=== PATIENT | female | born 1955 | race Caucasian/White ===

== ENCOUNTER → 2020-07-08 13:46 | Outpatient (CLI) | payer BC, SELFPAY ==
[2020-07-08 14:41] LABS: COVID19 -Nasal RAPID Negative (Negative)
== END ==
PROVIDERS: PCP Family Medicine; Visit Provider Nurse Practitioner
DX: Z20.822 Contact with and (suspected) exposure to COVID-19 (principal)
CPT/HCPCS: 87635

== ENCOUNTER 2020-07-11 09:43 | Day surgery (SDC) | payer BC, SELFPAY ==
[2020-07-04 12:40] VITALS: BMI 28.8
[2020-07-11] VITALS (24 sets, daily range): BP systolic 90–134; BP diastolic 37–82; PULSE 61–92; RESP 8–20; TEMP 35.9–36.8; O2SAT 75–99; BMI 28.8
--- NOTE | 2020-07-11 | DI.RAD.S_ITS ---
PROCEDURE: XR HIP W PEL IF DONE LT 2V INDICATIONS: ANTERIOR LEFT HIP TECHNIQUE: AP views of the left of the left hip(s). COMPARISON: [facility], CR, XR PELVIS WITH LATERAL HIP LEFT, 05/08/2020, 15:26. Merged With [facility], CR, XR HIP W PEL IF DONE LT 2V, 07/11/2020, 16:22. FINDINGS: Bones: C-arm images demonstrate placement of left hip arthroplasty with prosthetic components in expected positions. No periprosthetic fracture seen. Soft tissues: The visualized bowel gas pattern is normal. No suspicious soft tissue calcifications. IMPRESSION: Intraoperative C-arm images demonstrating expected positioning of left hip arthroplasty. Dictated by: Sae Jefferson [facility] Interpreted: Amarjit Mckeon MD on 07/11/2020 at 16:36 Approved by: Amarjit Mckeon M.D. on 07/11/2020 at 16:46
--- NOTE | 2020-07-11 09:21 | DI.RAD.S_ITS ---
PROCEDURE: XR HIP W PEL IF DONE LT 2V INDICATIONS: post op MATT, TOTAL LEFT HIP TECHNIQUE: 2 views of the hip were acquired. COMPARISON: [facility], , XR HIP W PEL IF DONE LT 2V, 07/11/2020, 13:50. FINDINGS: Bones: Expected appearance and alignment status post placement of left hip arthroplasty. No periprosthetic fractures. Degenerative disc and facet disease involves the inferior lumbar spine. Soft tissues: No suspicious soft tissue calcifications or masses. IMPRESSION: Expected immediate postoperative appearance and alignment of left hip arthroplasty. Dictated by: Sae Jefferson [facility] Interpreted: Amarjit Mckeon MD on 07/11/2020 at 16:51 Approved by: Amarjit Mckeon M.D. on 07/14/2020 at 17:04
[2020-07-11] MEDS: LACTATED RINGERS 1,000 ML 42 ML IV ×2 (10:04→14:37)
[2020-07-11] MEDS: ACETAMINOPHEN 325 MG TABLET 975 MG PO (10:05)
[2020-07-11] MEDS: PREGABALIN 75 MG CAPSULE PO (10:05)
[2020-07-11] MEDS: CELECOXIB 200 MG CAPSULE PO (10:05)
[2020-07-11] MEDS: VANCOMYCIN 1,000 MG/200 ML PIGGYBACK 200 MG IV (10:33)
--- NOTE | 2020-07-11 11:21 | P.OP_ITS ---
Operative Date/Time/Diagnoses Date of procedure: 07/11/20 Time of procedure: 11:59 Pre-op diagnosis: Left hip osteoarthritis and AVN Post-op diagnosis: same Procedure & Clinicians Procedure: left total hip arthroplasty anterior approach Same procedure as scheduled: Yes Indications: The patient has had progressively worsening left hip pain with radiographic changes consistent with arthritis. Non-operative management has failed and the patient has requested total hip replacement. The risks, benefits and alternatives to surgery were discussed with the patient prior to proceeding. Risks discussed included, but were not limited to, failure to relieve pain, leg length discrepancy, dislocation, stiffness, infection, nerve damage, deep venous thrombosis, pulmonary embolism, stroke, coma, heart attack, permanent paralysis and , as well as the potential need for eventual revision of the prosthetic. Surgeon: Nette Amaya Supervisor Power Reactor: Yohannes Thomas Anesthesia Type: General and Spinal Operative Notes Findings: severe left hip osteoarthritis, good stability Closure Type: primary Specimen(s): none sent Prosthetic devices, grafts, tissues, transplants, or devices: Amaya and Nephew 50 mm R3 cup, one 15 mm screw. Size 5 standard offset anthology, 32 by - 3 Oxinium head Estimated Blood Loss (mL): 250 Procedure in detail: The patient was brought to the operating room. Patient was carefully positioned in the supine position. Time-out was performed and antibiotics were given. Anesthesia was induced. She was positioned in the on the table in order to allow hyperextension of the hip. The left lower extremity was prepped and draped in a standard sterile fashion. An anterior left hip incision was made 1 fingerbreadth lateral to the anterior superior iliac spine and extended distally towards the greater trochanter. Dissection was carried out through skin and subcutaneous tissues. Superficial hemostasis was achieved. The fascia over the tensor fascia mariela was defined and incised with a knife. Two Allis clamps were used to grasp the fascia. Tensor fascia mariela was retracted laterally. A gelpi retractor was placed. Dissection was carried out down along the neck. The circumflex vessels were carefully identified and cauterized with the Aqua Mantis. There was good visualization of the femoral neck. A Cobra was placed superior to the neck and the gluteus fibers were carefully stripped from that superior aspect of the capsule. A 2nd retractor was placed along the inferior aspect of the neck. The rectus insertion along the capsule was partially released. A 3rd retractor that was then gently placed over the rim of the acetabulum under the rectus. Capsule was carefully incised and released from the intertrochanteric line circumferentially superior to the mid sagittal line and inferiorly to the mid sagittal line until the lesser trochanter was palpable. A tag stitch was placed both in the superior and inferior limb of the capsular insertion. Along the acetabulum capsule was also released up to the mid sagittal 12:00 position. A portion of the labrum was resected. A saw was used to perform an osteotomy at the level of the intertrochanteric line and the junction of the superior femoral neck leaving approximately 1 finger breath of residual inferior neck above the lesser trochanter. A 2nd cut was made along the femoral neck at the base of the head and a napkin ring of neck was removed. Corkscrew was placed in the femoral head and the head was removed without difficulty. Retractors were then repositioned around the acetabulum. Residual labrum was resected and additional osteophytes were removed. A reamer that was 4 mm below the templated size was placed by hand in the acetabulum and it was reamed to centralize the acetabulum. It was then reamed up to 2 under the templated size and fluoroscopy was brought in to confirm the position of the reaming and depth of reaming. I reamed 1 under the anticipated size. it was undersized and I reamed 2 mm more for 50 mm cup. A trial cup was placed and noted that it was appropriately sized and fluoroscopy confirmed position and depth. The component was open and inserted without difficulty fluoroscopic imaging was used to confirm that the cup had been adequately seated and was well positioned. It was further stabilized with a single screw. The cup was tested and noted to be stable. Attention was then directed to the femur. The femur was gently hyperextended additional capsular release was performed as needed in order to allow adequate visualization of the proximal femur with elevation of the femur. Patient was pl aced in a hyperextended slightly adducted position with maximum external rotation. Box osteotome was used to check for any residual neck as well as sclerotic bone along the trochanter. [place] pepper was placed in the femur. Additional broaching was performed. Canal finder was used to determine the alignment of the canal and position. Size 1 broach was placed. The canal was then appropriately broached up to the templated size as long as there was adequate stability of the broach and serial advancement of the broach without excessive impingement. Specific attention was directed at avoiding varus attempting to direct the distal aspect of the broach more anteriorly and avoiding excessive anteversion. Trial reduction showed acceptable range of motion, good stability, no posterior impingement, restorationism of leg length and appropriate lateral shuck. I also hyperflexed the hip and checked that there was no impingement anteriorly and there was good stability with flexion, adduction and internal rotation. Initial broaching was with an anthology a. It appeared that we could probably do a standard anthology and I broached with a standard anthology and also went up to a size 5 stem. Marcaine and Exparel were injected.. The stem was placed without difficulty. Repeat trial reduction and x-ray showed acceptable overall position, length, and no evidence of the femoral fracture. Final head was placed. Wound was meticulously irrigated with normal saline. The hip was reduced and additional Exparel and Marcaine were injected. The capsule was closed with interrupted nonabsorbable sutures. The fascia of the tensor was closed with interrupted and running Vicryl. No drain was placed. Any tensor fascia mariela muscle that appeared to be contused or injured which was a minimal amount was carefully resected. Capsule around the tensor was injected with Exparel and Marcaine. The skin was closed with barbed stitches for the subcutaneous tissue and skin. We also used surgical glue. The wound was dressed sterilely. Brief Betadine soak was also used and was meticulously irrigated with normal saline. Patient was transferred to recovery room in satisfactory condition. Complications: none Post-operative Condition: stable Disposition: Acute Care Plan for aftercare: The patient will be maintained on a standard total hip replacement protocol with weight bearing as tolerated and anterior hip precautions. The patient will receive Aspirin and sequential compression devices for DVT prophylaxis. The patient will be discharged home when safe for the home environment.
--- NOTE | 2020-07-11 11:21 | PM.PREOP ---
Pre-operative Note COVID-19 COVID-19 status: Negative Interval Note History & Physical reviewed/Exam performed by Physician: Yes Changes to H&P: No
[2020-07-11] MEDS: CEFAZOLIN 2 GM/100 ML FROZ.PIGGY IV ×2 (11:58→20:41)
--- NOTE | 2020-07-11 12:54 | SUR.OPER ---
Supine on padded Peerless table with bilateral legs secured in padded positioning boots and suspended in positioning spars, operative leg in traction per surgeon. Head on one pillow. Arm on non-operative side secured on padded armboard <90 degrees abduction. Arm on operative side padded and resting across chest then secured with tape over sheet. Padded perineal post in place per surgeon.
[2020-07-11] MEDS: BUPIVACAINE 0.25% W/ EPI (PF) 10 ML VIAL 20 ML INJ (13:04)
[2020-07-11] MEDS: TRANEXAMIC ACID 1,000 MG VIAL 2000 MG INJ ×2 (13:04→15:15)
[2020-07-11] MEDS: BUPIVACAINE LIPOSOME 266 MG/20 ML VIAL INJ (13:05)
[2020-07-11] MEDS: OXYCODONE IR 5 MG TABLET PO (16:59)
[2020-07-11] MEDS: LOVASTATIN 20 MG TABLET 40 MG PO (18:09)
[2020-07-11] MEDS: LACTATED RINGERS 1,000 ML 125 ML IV (18:09)
[2020-07-11] MEDS: IBUPROFEN 400 MG TABLET PO (18:09)
[2020-07-11] MEDS: ASPIRIN EC 81 MG TABLET PO (20:41)
[2020-07-11] MEDS: ACETAMINOPHEN 325 MG TABLET 650 MG PO (20:41)
[2020-07-11] MEDS: ONDANSETRON 4 MG/2 ML INJ IV (21:57)
--- NOTE | 2020-07-11 23:25 | PC.NURSE ---
not oob. pt unable to urinate. bladder scan at 2200 was 211cc. notified operation shift supervisor RN. pt had some nausea, emesis 300cc, administered zofran.
[2020-07-12 00:25] VITALS: BP 138/57; PULSE 85; RESP 18; TEMP 36.6; O2SAT 95
[2020-07-12] MEDS: IBUPROFEN 400 MG TABLET PO ×3 (01:00→08:53)
--- NOTE | 2020-07-12 01:52 | PC.NURSE ---
Patient seen at 2328 for shift assessment. Is alert and oriented. Breath sounds diminished at bases and is on oxygen at 1L/min per NC with sat of 92%. HRR. Mcewen slightly nauseated but received Zofran around 2200 so too early to repeat; no emesis. BT hypoactive and denies passing flatus as yet. Had not voided since return from surgery so assisted up to BSC at 0100 with walker and 1 assist and was able to urinate 150cc; denies dysuria. Able to move herself in bed. Dressing to left hip is CDI. CMS intact except for some numbness in left thigh. Wearing bilateral calf SCD's. Denied pain but when given scheduled Ibuprofen at 0100 stated pain was 2/10. Fall risk score is moderate and bed alarm is activated.
[2020-07-12] MEDS: LACTATED RINGERS 1,000 ML 125 ML IV (02:41)
[2020-07-12] MEDS: CEFAZOLIN 2 GM/100 ML FROZ.PIGGY IV (03:58)
[2020-07-12 04:30] VITALS: BP 119/76; PULSE 97; RESP 18; TEMP 36.2; O2SAT 95
[2020-07-12] MEDS: LEVOTHYROXINE 125 MCG TABLET PO (05:11)
[2020-07-12 06:35] LABS: Hematocrit 31.4 % (36-46); Hemoglobin 10.6 g/dL (12.0-16.0)
[2020-07-12 08:00] VITALS: BP 109/67; PULSE 84; RESP 16; TEMP 36.6
--- NOTE | 2020-07-12 08:16 | PM.PNPO.1 ---
Subjective Subjective Date Patient Seen: 07/12/20 Time Patient Seen: 08:16 Interval history: She notes that she is doing well. She has minimal hip pain. She has been out of bed to urinate. Exam Vital Signs (past 8 hours): - 07/12/20 00:25 07/12/20 04:30 07/12/20 08:00 Temperature 97.9 F 97.2 F L 97.8 F Pulse Rate 85 97 H 84 Respiratory Rate 18 18 16 Blood Pressure 138/57 L 119/76 109/67 Pulse Oximetry 95 95 Oxygen Delivery Method Nasal Cannula Oxygen Flow Rate 0 Narrative Exam Narrative: Her dressings benign. Her calf to soft. She is neurologically intact distally she can actively flex her hip and do a straight leg raise. Her calfs are soft bilaterally. Objective Labs Result Diagrams: 07/12/20 05:45 Labs: Laboratory Results - last 24 hr 07/12/20 05:45 Hgb 10.6 L Hct 31.4 L PFSH Medical History (Updated 07/04/20 @ 13:14 by Dorcas Thorne RN) Ear congestion Easy bruisability Hearing impairment HLD (hyperlipidemia) Hypothyroid IBS (irritable bowel syndrome) Osteoarthritis Seasonal allergies TMJ (dislocation of temporomandibular joint) Surgical History (Updated 07/04/20 @ 13:14 by Dorcas Thorne RN) H/O LEEP History of right oophorectomy Hx of tonsillectomy Social History household members: spouse and children Smoking Status: Never smoker alcohol intake: current Assessment & Plan Post-op Postoperative Procedures: Procedures Operation Date: 07/11/20 11:45 Actual Procedures Side Surgeon p Total Hip Arthroplasty/Anterior Approach Left Nette Amaya MD Postoperative day: 1 Postoperative status: doing well Postoperative plan: routine post-op care Postoperative plan narrative: Doing well after surgery. Okay to discharge to home. Outpatient physical therapy. Time Spent With Patient Time with patient: less than 15 minutes
[2020-07-12] MEDS: ACETAMINOPHEN 325 MG TABLET 650 MG PO (08:52)
[2020-07-12] MEDS: DOCUSATE 100 MG CAPSULE PO (08:52)
[2020-07-12] MEDS: ASPIRIN EC 81 MG TABLET PO (08:53)
--- NOTE | 2020-07-12 09:04 | PT.IIE ---
Current Diagnoses Bilateral primary osteoarthritis of hip (07/11/20) Surgery Performed Operation Date: 07/11/20 11:45 Actual Procedures p Total Hip Arthroplasty/Anterior Approach(Left) - Nette Amaya MD Surgical History (Last Updated 07/04/20 @ 13:14 by Dorcas Thorne, RN) H/O LEEP History of right oophorectomy Hx of tonsillectomy Medical History (Last Updated 07/04/20 @ 13:14 by Dorcas Thorne RN) Ear congestion Easy bruisability Hearing impairment HLD (hyperlipidemia) Hypothyroid IBS (irritable bowel syndrome) Osteoarthritis Seasonal allergies TMJ (dislocation of temporomandibular joint) Physical Therapy Inpatient Evaluation/Re-Eval M1 PT/OT-IP Prior Functional Status Start: 07/12/20 12:17 Freq: NEEDED Status: Active Protocol: Document 07/12/20 09:04 AB (Rec: 07/12/20 12:45 AB [id number]) Medical Review Prior Functional Status Medical History Reviewed Yes Communication able to make needs known Mobility and Gait pt stated that she is indpeendent with all mobilities without AD but occasionally uses a SPC Social History Household Members spouse,children Living Arrangements House Number of Floors (Floors) Two Floors Number of Stairs To Enter/Railing? 2 steps L rail to enter 5 steps +landing+ 5 steps with L rail ascending to bedroom level has a sunken living room with 2 steps down Home Environment Standard Height Toilet,Walk in Shower,Built-In Shower Seat Home Equipment Front Wheel Walker,Straight Cane,Raised Toilet Seat w/ Armrests,Hand Held Shower,Grab Bars In Shower Employment Status Retired M2 PT-IP Current Condition Start: 07/12/20 12:17 Freq: NEEDED Status: Active Protocol: Document 07/12/20 09:04 AB (Rec: 07/12/20 12:45 AB [email or web address]) Physical Therapy Current Condition Current Condition Evaluation Date 07/12/20 Treatment Diagnosis s/p L MATT anterior approach; difficulty in walking Onset Date 07/11/20 Precautions Anterior Hip Precautions No Hip Extension,No Hip External Rotation Weight Bearing Status Weight Bearing Status Weight Bear as Tolerated Allowed Weight Bearing Amount (enter % LLE WBAT or #) (%) M3 PT-IP Subjective Start: 01/13/21 12:17 Freq: NEEDED Status: Active Protocol: Document 07/12/20 09:04 AB (Rec: 07/12/20 12:45 AB [email or web address]) Subjective Physical Therapy Visit Type Type Initial Evaluation Visit Start Time 09:04 Visit Stop Time 10:14 Total Visit Minutes 65 Number of FILTER TANK OPERATOR Visits 0 Physical Therapy Visit Comments Patient Comments pt is agreeable to do PT Therapy Pain Assessment Pain When Pain Assessed At Rest Pain Present Pain Present Pain Reported Location left hip Intensity 3 Scale Used Numeric (0 - 10) Pain Behaviors Guarding Pain Management Techniques Apply Cold,Re-positioning, Timing of Activity with Medications M4 PT-IP Mobility and Gait Start: 07/12/20 12:17 Freq: NEEDED Status: Active Protocol: Document 07/12/20 09:04 AB (Rec: 07/12/20 12:45 [email or web address]) PT-Bed Mobility Assessment Supine to Sit Supine to Sit Standby Assistance Sit to Supine Sit to Supine Standby Assistance PT-Transfer Assessment Sit to and From Stand Sit to and from Stand Standby Assistance Equipment Transfer Assistive Device Gait Belt,Front Wheeled Walker Orthotic/Prosthetic Devices or Brace: No Transfers Transfer Destination Toilet Transfer Technique ambulated using FWW Transfer Ability Level of Assist Standby Assistance Comments Mobility Comments educated pt on L hip anterior precautions. BP supine: 104/ 61. completed supine to sit SBA. pt was able to sit on EOB SBA. pt ambulated to the toilet using FWW SBA. ambulated to the sink using FWW SBA and was able to maintain standing SBA while completing handwashing. pt agreed to do stairs and ambulated using FWW ~ 40 ft and c/o feeling oozy and ambulated back to her room ~ 40 ft and sat on chair. BP checked: 102/59. pt stated that she feels ok but has a headache and stated that she did not sleep well and was nauseated yesterday and does not want to eat much due to this. given pt option of attempting stairs again or to do it in the afternoon. pt stated that she really wants to go home and wants to do stairs. ambulated using FWW ~ 75 ft. educated on stair climbing. completed up/down steps with pt holding on to L rail with B hands SBA to CGA. initially requiring cues for techniques but able to complete without cues afterwards. pt completed 3 steps of stair climbing. completed up/down steps again using SPC and L side wall support only and completed SBA to CGA. assisted pt back to room. pt ambulated from w/ c to bed SBA using FWW and completed sit to supine SBA. c/o nausea. BP checked: 102/ 52. call light and table placed within reach. pt stated that she is comfortable with mobility and refused caregiver training. Gait Assessment Gait Gait Assistance Required: Standby Assistance Distance (Feet) 75 Able to Maintain Weight Bearing Status Yes During Gait Assistive Devices Assistive Device Gait Belt,Front Wheeled Walker Orthotic/Prosthetic Devices or Brace: No Gait Deviations General Gait Pattern Antalgic,Decreased Stride Length,Decreased Feet Clearance Factors Limiting Gait Function Factors Limiting Gait Function Decreased Activity Tolerance, Decreased Strength,Pain,Poor Balance Stair Climbing Assessment Evaluation Level of Assist On Stairs Standby Assistance,Contact Guard Assistance Devices Stair Climbing Assistive Devices Straight Cane,Left Railing Technique/Endurance Stair Climbing Direction Ascend and Descend Stair Climbing Technique Step to Step Number of Steps Climbed 3 Query Text: Stair Climbing Set # Repetitions (reps) 4 Comments Stair Climbing Comments pls refer to mobility section for details PT-Balance Assessment Sitting Balance and Reactions Static Sitting Balance Ability Good Dynamic Sitting Balance Ability Good Standing Balance and Reactions Static Standing Balance Ability Fair Dynamic Standing Balance Ability Fair Device Used FWW M5 PT-IP Objective Assessments Start: 07/12/20 12:17 Freq: NEEDED Status: Active Protocol: Document 07/12/20 09:04 AB (Rec: 07/12/20 12:45 AB [email or web address]) Orientation Orientation/Cognition Level of Alertness Alert Orientation Name,Place,Situation Gross Range of Motion Lower Extremity ROM Assessment Within Functional Limits Strength Lower Extremity Strength Assessment Left Impaired Hip 3+/5 Knee 4-/5 Coordination Assessment Gross Coordination Gross Coordination WNL Sensation Assessment Sensation Gross Sensation WNL Muscle Tone Muscle Tone WNL Yes M6 PT-IP Treatment Start: 07/12/20 12:17 Freq: NEEDED Status: Active Protocol: Document 07/12/20 09:04 AB (Rec: 07/12/20 12:45 AB [email or web address]) Physical Therapy Treatment Exercises Exercises Heel Slides Education Education Provided Precautions,Weight Bearing Status,Post-Op Packet,Safety M7 PT-IP Assessment and Plan Start: 01/13/21 12:17 Freq: NEEDED Status: Active Protocol: Document 07/12/20 09:04 AB (Rec: 07/12/20 12:45 AB [email or web address]) PT Summary Assessment and Plan Potential Rehabilitation Potential Good Status of Condition at Evaluation Stable Summary Impairments Pain,ROM,Strength,Balance, Coordination,Sensation,Tone, Cognition,Bed Mobility, Transfers,Gait,Activity Tolerance Assessment Summary pt requiring SBA to CGA with mobility and plans to go home with spouse to assist her. pt stated that she has outpt PT scheduled already. pt may go home when medically stable. Goals Bed Mobility Goal Independent Transfer Goal Independent,Front Wheeled Walker Gait Goal Independent,Front Wheel Walker Gait Distance 250 Other Goals up/down 11 steps L rail SBA up/down 2 steps SPC + L side wall support SBA Days to Meet Goals 5 Frequency of Treatment Frequency Of Treatment Twice a Day Treatment Plan Physical Therapy Treatment Plan Bed Mobility Training,Transfer Training,Gait Training, Therapeutic Exercise,Balance Retraining,Post Op Education, Discharge Planning,Hot or Cold Pack,Neuromuscular Re-ed, Coordination Retraining,Manual Therapy Recommendations To Nursing Amount of Assist Needed 1 Person Assist Discharge Recommendations PT Discharge Recommendations Home with Assistance, Outpatient PT Transportation Needs at Discharge Private Vehicle
[2020-07-12 11:04] VITALS: O2SAT 96
[2020-07-12] MEDS: ONDANSETRON 4 MG ODT PO (11:30)
--- NOTE | 2020-07-12 11:51 | PC.NURSE ---
VSS. Pain well controlled with tylenol and ibuprofen. Mild nausea, given PRN PO zofran prior to discharge. Discussed discharge instructions and answered all questions. IV removed. Wheeled out to car, driving home. Off of unit at 11:50.
== END 2020-07-12 11:50 | disposition home or self-care (01) ==
LOC: OR 09:49 → AC 09:51
PROVIDERS: PCP Family Medicine; Referring Provider Orthopaedic Surgery; Visit Provider Orthopaedic Surgery
PROC: (CPT 27130; principal; 2020-07-11 11:45)
DX: M16.12 Unilateral primary osteoarthritis, left hip (principal)
CPT/HCPCS: 27130; 36415; 73502; 76000; 85014; 85018; 94760; 97116; 97161; 97530; C1776; C9290; J0690; J1100; J2250; J2274; J2405; J2704; J3010